=== PATIENT | male | born 1985 | race Caucasian/White ===

== ENCOUNTER 2025-06-19 10:20 | Outpatient (AMB) | payer OTHER, SELFPAY ==
--- NOTE | 2025-06-19 10:32 | MHC.PC.OV ---
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 He states that he has not had a PCP before and that this is new for him. He made this appointment because he recently went to the ER. 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 He states that he lost consciousness for less than 30 seconds but when he came to he did notice some chest discomfort. No incontinence, confusion. No headache or vision changes. He went to the emergency room and he says that they did do an EKG and labs and told to follow up with the PCP for more of a workup. This is not happened before or since then. He states that it was a little hot that day and he maybe was not as well hydrated as they should have been and he also smoked marijuana which he does not normally do. He thinks it was possibly related to that combination. He says that they did just tell him that he has a very slow heartbeat at the ER and he should look into this. 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 No family history of heart disease or early cardiac . His blood pressure today in the office is 110/84. His heart rate is 49. MSK: He does report today that he is sometimes wakes up in the morning with a stiff low back and has to do stretching. He states he looks crooked when he wakes up but then it resolves. This has been going on for quite some time. He wonders if it could be related to his mattress. He has a waterbed. He is not noticing any pain during the day or stiffness during the day. No numbness, tingling or weakness. No radiation to the extremities. He just figured he would mention this. He is going away next week on vacation for a week and is going to be sleeping in a different bed and we will assess for symptoms. HEENT: Recently left ear felt a little blocked. Feels better since using ear drops. No sinus pain or pressure. No fevers or chills. Mother had pancreatic ca PFSH Surgical History (Updated 06/19/25 @ 10:57 by Laurita Muller CMA) No pertinent past surgical history Family History (Updated 06/19/25 @ 10:58 by Laurita Muller CMA) Mother Pancreatic cancer Social History (Updated 06/19/25 @ 10:59 by Laurita Muller CMA) Housing: House Alcohol intake: current Patient Tobacco Use Status: Current everyday Tobacco user Tobacco use type: Cigarette Cigarettes Per Day: 5 Years Smoked: 1 e-Cigarette/Vaping Use: Never Used service: No Current occupational status: unemployed Cognitive needs: No Hearing needs: No Vision needs: No Questionnaire PHQ-9 Over the last 2 weeks, how often have you been bothered by any of the following problems? 1. Little interest or pleasure in doing things: not at all 2. Feeling down, depressed, or hopeless: several days 3. Trouble falling or staying asleep, or sleeping too much: several days 4. Feeling tired or having little energy: several days 5. Poor appetite or overeating: not at all 6. Feeling bad about yourself - or that you are a failure or have let yourself or your family down: not at all 7. Trouble concentrating on things, such as reading the newspaper or watching television: not at all 8. Moving or speaking so slowly that other people could have noticed. Or the opposite - being so fidgety or restless that you have been moving around a lot more than usual: not at all 9. Thoughts that you would be better off or of hurting yourself in some way: not at all Total score: 3 Depression Screening Interpretation: Negative Depression Screening Done: Yes 68935 - PHQ-9 Billing: Yes Source: Developed by Drs. Aryan Tim, Jaye Garcia, Bebeto Power and colleagues, with an educational maureen from [employer]. Thrive Questionnaire Date Thrive assessed: 06/12/25 I am a: Patient What is your living situation today?: I choose not to answer this question Within the past 12 months, did the food you bought not last and you didn't have the money to get more?: I choose not to answer this question Within the past 12 months, did you worry whether your food would run out before you got money to buy more?: I choose not to answer this question Do you have trouble paying for medicines?: No Do you have trouble getting transportation to medical appointments?: I choose not to answer this question Do you have trouble paying your heating and electricity bill?: I choose not to answer this question Do you have trouble taking care of your child, family member or friend?: I choose not to answer this question Do you have trouble with day-to-day activities such as bathing, preparing meals, shopping, managing finances, etc.?: I choose not to answer this question Are you currently unemployed and looking for a job?: I choose not to answer this question Are you interested in more education?: I choose not to answer this question Please select the resources that you would like help with: None Currently or been in a relationship where the following occur: No concerns reported THRIVE Score: 0 AUDIT C Alcohol Use Questionnaire (AUDIT-C) 1. How often do you have a drink containing alcohol?: 2-4 times a month 2. How many drinks containing alcohol do you have on a typical day when you are drinking?: 3 or 4 3. How often do you have six or more drinks on one occasion?: Monthly Total Score: 5 Score Reviewed/Action Taken: Yes DAYA-7 AMB Questionnaire DAYA-7 Date DAYA - 7 assessed: 06/19/25 Feeling nervous, anxious, or on edge: 0 = Not at all Not being able to stop or control worryin = Not at all Worrying too much about different things: 0 = Not at all Trouble relaxin = Several days Being so restless that it is hard to sit still: 0 = Not at all Becoming easily annoyed or irritable: 1 = Several days Feeling afraid as if something awful might happen: 0 = Not at all Total DAYA-7 score (0-4 normal; 5-9 mild; 10-14 moderate; 15-21 severe): 2 Source: Developed by Drs. Aryan Tim, Jaye Garcia, Bebeto Power and colleagues, with an educational maureen from [employer]. DAYA-7 Assessment Billing DAYA-7 Assessment Tool: DAYA-7 Assessment 39743 Physical exam (Primary Care) Vital Signs: Last Vital Signs Temp 98 F 06/19/25 10:38 Pulse 49 L 06/19/25 10:38 Resp 12 06/19/25 10:38 BP 110/84 06/19/25 10:38 Pulse Ox 97 06/19/25 10:38 Oxygen Delivery Method Room Air 06/19/25 10:38 BMI result Body Mass Index 25.8 Tobacco/Smoking Status: Tobacco use Status Tobacco use date assessed 06/19/25 06/19/25 10:34 Patient Tobacco Use Status Current everyday Tobacco 06/19/25 10:59 Tobacco use type Cigarette 06/19/25 10:59 e-Cigarette/Vaping Use Never Used 06/19/25 10:59 PHQ-9: PHQ-9 Score PHQ-9: Total score 3 06/19/25 10:59 Depression Screening Interpretation: Negative Thrive Assessment: Date of Thrive Assessment Date Thrive assessed 06/12/25 06/19/25 10:34 Currently or been in a relationship where the following occur: No concerns reported Const Orientation/consciousness: patient oriented x3 HENMT Ears: hearing grossly normal bilaterally Neck Thyroid: Thyroid normal Lymphatic: no lymphadenopathy noted Resp Auscultation: clear to auscultation bilaterally Cardio Rate: regular rate Rhythm: regular rhythm Heart sounds: S1 normal heart sound present and S2 normal heart sound present GI Inspection: Yes normal to inspection Palpation (GI): Soft to palpation and Other GI palpation findings present (nontender, no cva tenderness) Auscultation: normoactive bowel sounds Rectal Exam - Male: Yes deferred Skin General skin exam: no rashes or lesions noted Neuro General: patient oriented x3, gait normal and no focal motor deficits Coding Level of Care Code New Pt Level 4 (39265) Complex EM visit Add On G2211 Diagnoses Tobacco abuse Z72.0 Syncope R55 Bradycardia R00.1 Additional Codes DAYA-7 Assessment Billing - DAYA-7 Assessment Tool: DAYA-7 Assessment 19719 ([id number]) PHQ-9 - 61362 - PHQ-9 Billing: Yes ([id number]) Assessment & Plan Assessment & Plan (1) Tobacco abuse: Code(s): Z72.0 - Tobacco use Category: Medical Plan: Working on quitting smoking cigarettes. Nicotine patch ordered today. (2) Syncope: Code(s): R55 - Syncope and collapse Category: Medical Plan: Labs ordered. EKG today in the office is sinus bradycardia at a rate of 49 beats per minute with no prior study to compare. Echo ordered Holter ordered Stress test ordered (3) Bradycardia: Code(s): R00.1 - Bradycardia, unspecified Category: Medical Plan: As above Plan We will follow up pending test results. Orders: Orders Complete Blood Count Auto Diff Today R00.1 - Bradycardia, unspecified, R55 - Syncope and collapse, Z72.0 - Tobacco use Lipid Panel Today R00.1 - Bradycardia, unspecified, R55 - Syncope and collapse, Z72.0 - Tobacco use TSH reflex Free T4 Today R00.1 - Bradycardia, unspecified, R55 - Syncope and collapse, Z72.0 - Tobacco use Microalbumin, Random (w Creat) Today R00.1 - Bradycardia, unspecified, R55 - Syncope and collapse, Z72.0 - Tobacco use ECG holter monitor 24 hour Today R00.1 - Bradycardia, unspecified, R55 - Syncope and collapse, Z72.0 - Tobacco use CA stress test Today R00.1 - Bradycardia, unspecified, R55 - Syncope and collapse, Z72.0 - Tobacco use Comprehensive [place]. Panel Fast Today R00.1 - Bradycardia, unspecified, R55 - Syncope and collapse, Z72.0 - Tobacco use UA CC w/rflx Micro + Cult Today R00.1 - Bradycardia, unspecified, R55 - Syncope and collapse, Z13.220 - Encounter for screening for lipoid disorders, Z72.0 - Tobacco use Prostate Specific Antigen Scr Today R00.1 - Bradycardia, unspecified, R55 - Syncope and collapse, Z01.89 - Encounter for other specified special examinations, Z72.0 - Tobacco use Lyme IgG/IgM w/reflex to WB Today R00.1 - Bradycardia, unspecified, R55 - Syncope and collapse, Z72.0 - Tobacco use CA echo transthoracic complete Today R00.1 - Bradycardia, unspecified, R55 - Syncope and collapse, Z72.0 - Tobacco use AMB EKG-In Office Today R00.1 - Bradycardia, unspecified, R55 - Syncope and collapse Medications: New nicotine (Nicoderm CQ) 1 patch transdermal Q24H 14 ea 4RF
[2025-06-19 10:38] VITALS: BP 110/84; PULSE 49; RESP 12; TEMP 36.6; O2SAT 97; BMI 25.8
== END 2025-06-19 11:21 | disposition home or self-care (01) ==
LOC: HO.HMCFM 10:21
PROVIDERS: PCP Physician Assistant; Visit Provider Physician Assistant
DX: Z72.0 Tobacco use (principal); R55 Syncope and collapse; R00.1 Bradycardia, unspecified

== ENCOUNTER → 2025-06-19 10:20 | Outpatient (BNVA) | payer OTHER, SELFPAY | PROVIDERS: PCP Physician Assistant; Visit Provider Physician Assistant | DX: Z76.89 Persons encountering health services in other specified circumstances (principal); R55 Syncope and collapse; R00.1 Bradycardia, unspecified; Z72.0 Tobacco use; Z13.31 Encounter for screening for depression; Z13.39 Encounter for screening examination for other mental health and behavioral disorders | CPT/HCPCS: 93005; 96127; 99202 ==

== ENCOUNTER → 2025-08-14 09:00 | Outpatient (REF) | payer OTHER, SELFPAY ==
--- NOTE | 2025-08-14 09:05 | CA_ITS ---
Transthoracic Echocardiogram Patient (Last, First, Middle): Chucky Mathis, Gender: Male Date of : 1985 Age: 40 Procedure Date: 08/14/2025 Procedure Type: Transthoracic Echocardiogram Location: OP Height: 177.8 cm Weight: 82.1 kg BSA: 2.00 m2 Heart Rate: 51 bpm BP: 110 / 84 mmHg Office Associate: SB Referring MD: Anju Lara PA-C Symptoms: R55 - Syncope and collapse Study Quality: Adequate ECG Rhythm: Bradycardia Conclusions: - The left ventricular systolic function is normal. The calculated ejection fraction is 55% by biplane method. - No obvious valvular pathology seen on this study. Findings Left Ventricle Normal left ventricular cavity size. There is normal left ventricular wall thickness. The left ventricular systolic function is normal. The calculated ejection fraction is 55% by biplane method. There is no evidence of regional wall motion abnormalities. Diastolic function is normal for age. Right Ventricle Normal right ventricular cavity size and systolic function. Atria Both atria are normal in size. Aortic Valve There is a normal trileaflet aortic valve. There is no aortic valve stenosis. There is no aortic valve regurgitation. Mitral Valve The mitral valve appears normal. There is no mitral valve regurgitation. There is no mitral valve stenosis. Pulmonic Valve The pulmonic valve is likely normal. Tricuspid Valve There is mild tricuspid valve regurgitation. There is no evidence of pulmonary hypertension. Great Vessels The asc aorta and aortic arch are normal in size. Venous The inferior vena cava is normal in size and collapses greater than 50% with inspiration. Pericardium/Pleural There is no evidence of pericardial effusion. Prior Study Comparison No prior study available for comparison. Recommendations, Care & Conclusions No obvious valvular pathology seen on this study. Measurements 2D Linear Measurements IVSd: 0.88 0.6-0.9/0.6-1.0 cm LVIDd: 4.98 3.9-5.3/4.2-5.9 cm LVIDd Index: 2.49 2.4-3.2/2.2-3.1 cm/m2 LVIDs: 3.67 2.0-3.6 cm LVPWd: 0.65 0.7-1.1 cm LA Diam: 3.30 2.7-3.8/3.0-4.0 cm LAIDs Index: 1.65 1.5-2.3 cm/m2 LV Mass: 157.96 67-162/88-224 g LV Mass Index: 78.98 43-95/49-115 g/m2 LVOT Diam: 2.10 3.0+(-)1.3 cm 2D Systolic Function EF 4C: 52.70 >55% EF 2C: 60.10 >55% EF BiP: 54.70 >55% Mitral Valve MV Pk E: 0.96 MV PK A: 0.29 MV Decel Time: 193.00 E/A: 3.30 E'Lateral: 15.80 E'Medial: 8.81 E/E' Med: 10.90 E/E' Lat: 6.10 PHT: 56.00 MVA PHT: 3.93 Decel [place]: 4.98 Aortic Valve AoV Pk Graeme: 1.08 AoV Pk Grad: 5.00 LVOT LVOT Pk Graeme: 1.05 LVOT Mn Graeme: 0.73 LVOT VTI: 0.24 LVOT Pk Grad: 4.00 LVOT Mn Grad: 3.00 LVOT Diam: 2.10 LVOT Area: 3.46 Diastolic Function MV Pk E: 0.96 MV Pk A: 0.29 E/A: 3.30 E'Medial: 8.81 E/E' Med: 10.90 E' Laterial: 15.80 E/E' Lat: 6.10 Right Ventricle TAPSE (mm): 18.90 TVS' Graeme: 11.10 Tricuspid Valve TR Pk Graeme: 1.75 TR Pk Grad: 12.00 RA Press: 3.00 RVSP: 15.00 Great Vessels Aorta Sinus of Valsalva: 3.40 2.0-3.5 cm Ao Asc: 2.70 2.1-3.4 cm Ao Arch: 2.40 Pulmonary Valve PV Pk Graeme: 0.90 Peak PV Grad: 3.00 Updated in Other Vendor System with Status of Final Matthew Tellez MD electronically signed on 08/15/2025 4:45:42 PM with status of Final
--- NOTE | 2025-08-14 09:05 | CA_ITS ---
Acquisition Time: 2025-08-14 10:04:01 Total Exercise Time: 00:10:30 Test Indications: SYNCOPE AND COLLAPSE Medications: SEE MED CHART Protocol: LORA Max HR: 160 BPM 89% of Pred: 178 BPM Max BP: 144/76 mmHG Max Work Load: 12.5 METS Exercise stress test with exercise 10 mins 30 secs of Lora Protocol, achieving 90% MPHR, without any reported symptoms of angina, with isolated PACs, with normotensive response to exercise. Without any EKG changes meeting criteria for ischemia. In recovery, pt continued to feel well. Test reviewed with Dr. Tellez. Referred By: Anju Lara Electronically Signed By: Arpan Rubio
--- NOTE | 2025-08-14 09:05 | HM_ITS ---
* Total monitoring time one day. * Underlying rhythm is sinus with an average rate of 61/Min. * Rare supraventricular ectopy. * Rare ventricular ectopy. * No significant pauses or high-grade AV blocks. * No patient markers or diary events. MTDD
--- OUTSIDE RECORDS SUMMARY | 2025-08-14 10:26 | XMS_ITS | Clinical Summary ---
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 Not on orsas e 04/10/2025 Are you concerned about learning? Not on file 04/10/2025 No 04/10/2025 No 04/10/2025 Food Answer Date Recorded Within the past 6 months we worried whether our food would run out before we got money to buy more. Never True 04/10/2025 Within the past 6 months the food we bought just didn't last and we didn't have enough money to get more. Never True Residential Stability Answer Date Recor ded What is your housing situation today? I have marva sing 04/10/2025 How many times have you move d in the past 12 months? Zero (I did not move) 04/10/2025 Paying for Meds Answer Date Recorded Do you have trouble paying for medicines? No 04/10/2025 Paying Utility Bills Answer Date Record ed Do you have trouble paying your heating or elect ricity bill? No 04/10/2025 Transportation Answer Date Recorded Has the lack of transportati on kept you from medical appointments or from getting medications? No 04/10/2025 Digital Access Answer Date Recorded No 04/10/2025 Yes 04/10/2025 Do you have reliable internet access at home? Ye s 04/10/2025 Do you have a device (e.g., phone, tablet, computer) with a working camera? Yes 04/10/2025 Intimate Partner Violence Answer Date R ecorded Are you denied basic needs s uch as food, clothing, or medical care? No 04/10/2025 In the past 12 months have y ou been in a relationship with a person who hurts, threatens, or tries to control you? No 04/10/2025 Are you denied basic needs s uch as food, clothing, or medical care? No 04/10/2025 In the past 12 months have y ou been in a relationship with a person who hurts, threatens, or tries to control you? No 04/10/2025 Sex and Gender Information Value Date Recorded Sex Assigned at Male 04/10/2025 5:46 PM EDT Legal Sex Male 5:31 PM EDT Gender Identity Male 04/10/2025 5:46 PM EDT Sexual Orientation Straight 04/10/2025 5: 46 PM EDT Last Filed Vital Signs Vital Sign Reading Time Taken Comments Blood Pressure 124/76 04/11/2025 1:00 AM EDT Pulse 69 04/11/2025 1:00 AM EDT Temperature 36.6 C (97.9 F) 04/11/2025 1:00 AM EDT Respiratory Rate 16 04/11/2025 1:00 AM EDT Oxygen Saturation 100% 04/11/2025 1:00 AM EDT Inhaled Oxygen Concentration - - Weight 81.6 kg (180 lb) 04/10/2025 5:47 PM EDT Height 177.8 cm (5' 10 ) 04/10/2025 11:45 PM EDT Body Mass Index 25.83 04/10/2025 5:47 PM EDT Plan of Treatment Health Maintenance Due Date Last Done Comments Adult Td,Tdap Booster 1985 LIPID PANEL 1985 DEPRESSION SCREENING 1995 SMOKING Hx and SMOKELESS TOB ACCO SCREENING 1996 HEPATITIS C SCREENING 2001 HIV ONE-TIME SCREENING (18-6 5 YEARS) 2001 INFLUENZA VACCINE (#1) 2025 COVID-19 VACCINE (2023-2 5 season) 2025 SCREENING FOR DIABETES 04/10/2028 04/10/2025 HEPATITIS A VACCINES Aged Out No long er eligible based on patient's age to complete this topic HIB VACCINES Aged Out No longer eligi ble based on patient's age to complete this topic MENINGOCOCCAL VACCINES (ACWY) Aged Out No longer eligible based on patient's age to complete this topic MENINGOCOCCAL VACCINES (B) Aged Out N o longer eligible based on patient's age to complete this topic PNEUMOCOCCAL VACCINES (0-49 years) Aged Out No longer eligible based on patient's age to complete this topic Medical Devices Not on file Insurance [employer] DIRECT [facility] [employer] DIRECT [employer] [place] [address] [place] [address] [place] [address] [place] [address] [employer] 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 It is not the complete legal health record.[facility]
== END ==
LOC: HO.CARD 09:00
PROVIDERS: PCP Physician Assistant; Visit Provider Physician Assistant
DX: R55 Syncope and collapse (principal); R00.1 Bradycardia, unspecified; Z72.0 Tobacco use
CPT/HCPCS: 93017; 93225; 93306

== ENCOUNTER → 2025-08-14 09:05 | Outpatient (BNV) | payer OTHER, SELFPAY | PROVIDERS: PCP Physician Assistant | DX: I49.1 Atrial premature depolarization (principal) | CPT/HCPCS: 93016; 93018; 93306 ==